=== PATIENT | female | born 1965 | race Caucasian/White ===

== ENCOUNTER 2016-10-09 12:02 | Emergency (ER) | payer OTHER ==
[~2016-10-09] VITALS: Ht 152.4 cm; Wt 86.2 kg
[2016-10-09] MEDS ORDERED: METF500T8 PO (12:13)
[2016-10-09] MEDS ORDERED: ATOR80TA76 PO (12:13)
[2016-10-09] MEDS ORDERED: KETOROLAC 30 MG/ML VIAL IVP ONE (12:15)
--- NOTE | 2016-10-09 12:17 | ED Chest Pain ---
General Chief Complaint: Chest Wall/Rib Pain Stated Complaint: BACK PAIN Source: patient Exam Limitations: no limitations History of Present Illness Time seen by provider: 12:14 Initial Comments To ER with left lateral and posterior chest pain. This began suddenly while she was taking a shower reachinG up to shampoo her hair at 11 a.m. She had sudden onset of a cramp to the left lateral thoracic back. She had associated dyspnea. She took a Flexeril at home which minimally helped. She had her rub the area that hurt and that seemed to alleviate some of the pain. She also reports some mild indigestion. She states that the pain is not that bad but her big concern was that her dog "freaked out" and started whining and put it positive on her which made her believe that the dog suspected this to be a more serious event. She denies any personal history of heart disease. Pain is worse with deep breathing. Timing/Duration: 1-3 hours Severity/Quality: moderate Location: other (left lateral thoracic) Radiation: no radiation Activities at Onset: none ASA po NURSE GYNECOLOGY: No NTG SL NURSE GYNECOLOGY: No Associated Symptoms: shortness of breath (this is resolved currently however) Allergies and Home Medications Allergies Coded Allergies: codeine (Verified Allergy, Unknown, 10/09/16) Home Medications Atorvastatin Calcium 80 Mg Tablet, 1 TAB PO UD, #30 (Reported) Metformin HCl 500 Mg Tab.er.24h, 1 TAB PO UD, #30 (Reported) Review of Systems Constitutional: see HPI EENTM: No Symptoms Reported Respiratory: See HPI Cardiovascular: See HPI Gastrointestinal: No Symptoms Reported Genitourinary: No Symptoms Reported Musculoskeletal: no symptoms reported Skin: no symptoms reported Psychiatric/Neurological: No Symptoms Reported Endocrine: No Symptoms Reported Past Wqfzlgs-Yjtrau-Xgheov Hx Patient Social History Recent Foreign Travel: No Contact w/Someone Who Travel: No Physical Exam Vital Signs Vital Sign - Last 12Hours 10/09/16 12:14 Temp 97.8 Pulse 76 Resp 18 B/P (MAP) 132/90 Pulse Ox 98 O2 Delivery Room Air Capillary Refill : General Appearance: No Apparent Distress, WD/WN HEENT: PERRL/EOMI, TMs Normal Neck: Full Range of Motion, Normal Inspection Respiratory: Lungs Clear, No Accessory Muscle Use, No Respiratory Distress, Other (left lateral chest wall is tender but without lesion, rash or ecchymosis. No crepitus.) Cardiovascular: Regular Rate, Rhythm, Normal Peripheral Pulses Gastrointestinal: Normal Bowel Sounds, Non Tender, Soft Extremity: Normal Capillary Refill, Normal Inspection Neurologic/Psychiatric: Alert, Oriented x3, No Motor/Sensory Deficits Skin: Normal Color, Warm/Dry Progress/Results/Core Measures Results/Orders Lab Results Laboratory Tests Test 10/09/16 12:20 10/09/16 14:00 Range/Units White Blood Count 5.6 4.3-11.0 10^3/uL Red Blood Count 4.88 4.35-5.85 10^6/uL Hemoglobin 14.0 11.5-16.0 G/DL Hematocrit 43 35-52 % Mean Corpuscular Volume 88 80-99 FL Mean Corpuscular Hemoglobin 29 25-34 PG Mean Corpuscular Hemoglobin Concent 33 32-36 G/DL Red Cell Distribution Width 13.4 10.0-14.5 % Platelet Count 257 130-400 10^3/uL Mean Platelet Volume 10.5 H 7.4-10.4 FL Neutrophils (%) (Auto) 45 42-75 % Lymphocytes (%) (Auto) 41 12-44 % Monocytes (%) (Auto) 8 0-12 % Eosinophils (%) (Auto) 6 0-10 % Basophils (%) (Auto) 1 0-10 % Neutrophils # (Auto) 2.5 1.8-7.8 X 10^3 Lymphocytes # (Auto) 2.3 1.0-4.0 X 10^3 Monocytes # (Auto) 0.4 0.0-1.0 X 10^3 Eosinophils # (Auto) 0.3 0.0-0.3 10^3/uL Basophils # (Auto) 0.1 0.0-0.1 10^3/uL D-Dimer 0.32 0.00-0.49 UG/ML Sodium Level 139 135-145 MMOL/L Potassium Level 4.2 3.6-5.0 MMOL/L Chloride Level 105 98-107 MMOL/L Carbon Dioxide Level 24 21-32 MMOL/L Anion Gap 10 5-14 MMOL/L Blood Urea Nitrogen 17 7-18 MG/DL Creatinine 1.07 0.60-1.30 MG/DL Estimat Glomerular Filtration Rate 54 BUN/Creatinine Ratio 16 Glucose Level 98 70-105 MG/DL Calcium Level 9.9 8.5-10.1 MG/DL Total Bilirubin 0.7 0.1-1.0 MG/DL Aspartate Amino Transf (AST/SGOT) 27 5-34 U/L Alanine Aminotransferase (ALT/SGPT) 33 0-55 U/L Alkaline Phosphatase 96 40-136 U/L Troponin I < 0.30 <0.30 NG/ML Total Protein 7.6 6.4-8.2 G/DL Albumin 4.4 3.2-4.5 G/DL My Orders Orders - ZURI VAZQUEZ APRN Cbc With Automated Diff (10/09/16 12:13) Comprehensive Metabolic Panel (10/09/16 12:13) Fibrin Degradation Products (10/09/16 12:13) Ekg Tracing (10/09/16 12:13) Troponin I (10/09/16 12:13) Saline Lock/Iv-Start (10/09/16 12:13) Ketorolac Injection (Toradol Injection) (10/09/16 12:15) Chest Pa/Lat (2 View) (10/09/16 12:53) Troponin I (10/09/16 13:57) Medications Given in ED Current Medications Medications Dose Ordered Sig/Noe Route Start Time Stop Time Status Last Admin Dose Admin Ketorolac Tromethamine 30 mg ONCE ONCE IVP 10/09/16 12:15 10/09/16 12:16 DC 10/09/16 12:22 30 MG Vital Signs/I&O Vital Sign - Last 12Hours 10/09/16 10/09/16 12:14 12:22 Temp 97.8 97.8 Pulse 76 Resp 18 B/P (MAP) 132/90 Pulse Ox 98 O2 Delivery Room Air Progress Note : Progress Note 1320-all of the patient's labs are unremarkable. EKG shows no ST segment changes. Her pain at this point is much improved after Toradol and only recurs with certain movements. Advised her this is likely musculoskeletal pain however we will repeat a troponin at 2 p.m. which would be roughly 3 hours after the onset. If still negative, we will discharge to home with treatment for muscular skeletal back pain. Patient and agree with this plan. 1406-I did discuss the patient's labs and urine drug screen with her. She admits "I did snort a line of meth with a friend at work 2 days ago" Diagnostic Imaging Diagonstic Imaging: Xray Comments NAME: NARAYAN BROWN [facility] REC#: [id number] PT STATUS: REG ER : 1965 PHYSICIAN: ZURI VAZQUEZ APRN ADMIT DATE: 10/09/16/ER Draft Date of Exam:10/09/16 CHEST PA/LAT (2 VIEW) INDICATION: Left rib pain. FINDINGS: PA and lateral chest shows the lungs to be well-aerated and clear. There are no infiltrates present. No masses. The heart is not enlarged. There is no evidence of pulmonary edema. No pneumothorax or pleural effusions. No rib fractures or destructive bony lesions. IMPRESSION: Normal PA and lateral chest. Dictated on workstation # [id number] Dict: 10/09/16 1308 Trans: 10/09/16 1310 [facility] [id number] Interpreted by: AJIT RODRIGUEZ MD Electronically signed by: Departure Impression Impression: Primary Impression: Thoracic back pain Disposition: 01 HOME, SELF-CARE Condition: Stable Decision to Admit Reason: Admit from ER (General) Departure-Patient Inst. Decision time for Depature: 13:06 Referrals: MAXWELL BENNETT DO (PCP/Family) Primary Care Physician Patient Instructions: Muscle Strain Add. Discharge Instructions: 1. Return to ER for any concerns such as worsening pain, shortness of breath, chest pain, lightheadedness 2. Follow-up with your doctor tomorrow All discharge instructions reviewed with patient and/or family. Voiced understanding. Images Torso/Trunk 1 - Tenderness 1 - Tenderness Copy Copies To 1: MAXWELL BENNETT PETER J APRN Oct 09, 2016 12:17
[2016-10-09 12:33] LABS: BASOPHILS # (AUTO) 0.1 10^3/uL (0.0-0.1); BASOPHILS % (AUTO) 1 % (0-10); EOSINOPHILS # (AUTO) 0.3 10^3/uL (0.0-0.3); EOSINOPHILS % (AUTO) 6 % (0-10); LYMPHOCYTES # (AUTO) 2.3 X 10^3 (1.0-4.0); LYMPHOCYTES % (AUTO) 41 % (12-44); MEAN CORPUSCULAR HEMOGLOBIN 29 PG (25-34); MEAN CORPUSCULAR HGB CONC 33 G/DL (32-36); MEAN CORPUSCULAR VOLUME 88 FL (80-99); MEAN PLATELET VOLUME 10.5 FL (7.4-10.4); MONOCYTES # (AUTO) 0.4 X 10^3 (0.0-1.0); MONOCYTES % (AUTO) 8 % (0-12); NEUTROPHILS # (AUTO) 2.5 X 10^3 (1.8-7.8); NEUTROPHILS % (AUTO) 45 % (42-75); PLATELET COUNT 257 10^3/uL (130-400); RED BLOOD COUNT 4.88 10^6/uL (4.35-5.85); RED CELL DISTRIBUTION WIDTH 13.4 % (10.0-14.5); WHITE BLOOD COUNT 5.6 10^3/uL (4.3-11.0)
[2016-10-09 12:52] LABS: ALANINE AMINOTRANSFERASE 33 U/L (0-55); ALBUMIN 4.4 G/DL (3.2-4.5); ANION GAP 10 MMOL/L (5-14); ASPARTATE AMINO TRANSFERASE 27 U/L (5-34); BILIRUBIN,TOTAL 0.7 MG/DL (0.1-1.0); BLOOD UREA NITROGEN 17 MG/DL (7-18); BUN/CREATININE RATIO 16; CALCIUM 9.9 MG/DL (8.5-10.1); CARBON DIOXIDE 24 MMOL/L (21-32); CHLORIDE 105 MMOL/L (98-107); CREATININE SERUM 1.07 MG/DL (0.60-1.30); GFR ESTIMATED 54; GLUCOSE 98 MG/DL (70-105); POTASSIUM 4.2 MMOL/L (3.6-5.0); SODIUM 139 MMOL/L (135-145); TOTAL PROTEIN 7.6 G/DL (6.4-8.2)
[2016-10-09 12:58] LABS: TROPONIN I < 0.30 NG/ML (<0.30)
--- NOTE | 2016-10-09 13:10 | Diagnostic Imaging Report ---
INDICATION: Left rib pain. FINDINGS: PA and lateral chest shows the lungs to be well-aerated and clear. There are no infiltrates present. No masses. The heart is not enlarged. There is no evidence of pulmonary edema. No pneumothorax or pleural effusions. No rib fractures or destructive bony lesions. IMPRESSION: Normal PA and lateral chest. Dictated by: Dictated on workstation # [id number]
[2016-10-09 14:45] VITALS: BP 132/75
== END 2016-10-09 14:45 | disposition home or self-care (01) ==
LOC: EDUNIT# 12:02 → ER 12:04
DX: M54.6 Pain in thoracic spine (principal); E11.9 Type 2 diabetes mellitus without complications; F15.10 Other stimulant abuse, uncomplicated; Z79.84 Long term (current) use of oral hypoglycemic drugs
CPT/HCPCS: 36415; 71020; 80053; 84484; 85025; 85379; 93005; 96374

== ENCOUNTER → 2017-06-02 | Outpatient (CLI) | payer OTHER ==
[~2017-06-02] MED LIST: ATOR80TA76 PO; METF500T8 PO
[2017-06-02 12:19] LABS: BASOPHILS % (AUTO) 0 % (0-10); EOSINOPHILS # (AUTO) 0.4 10^3/uL (0.0-0.3); EOSINOPHILS % (AUTO) 5 % (0-10); LYMPHOCYTES # (AUTO) 2.8 X 10^3 (1.0-4.0); LYMPHOCYTES % (AUTO) 36 % (12-44); MEAN CORPUSCULAR HEMOGLOBIN 29 PG (25-34); MEAN CORPUSCULAR HGB CONC 33 G/DL (32-36); MEAN CORPUSCULAR VOLUME 88 FL (80-99); MEAN PLATELET VOLUME 9.2 FL (7.4-10.4); MONOCYTES # (AUTO) 0.6 X 10^3 (0.0-1.0); MONOCYTES % (AUTO) 8 % (0-12); NEUTROPHILS # (AUTO) 3.9 X 10^3 (1.8-7.8); NEUTROPHILS % (AUTO) 50 % (42-75); PLATELET COUNT 409 10^3/uL (130-400); RED BLOOD COUNT 4.42 10^6/uL (4.35-5.85); RED CELL DISTRIBUTION WIDTH 13.8 % (10.0-14.5); WHITE BLOOD COUNT 7.7 10^3/uL (4.3-11.0)
--- NOTE | 2017-06-02 12:19 | Diagnostic Imaging Report ---
PA and lateral views of chest. INDICATION: Cough. FINDINGS: The lungs are clear. The heart size is normal. There is no effusion or pneumothorax. The mediastinum and ashley appear unremarkable. IMPRESSION: Unremarkable exam. Dictated by: Dictated on workstation # [id number]
[2017-06-02 12:49] LABS: ALBUMIN 3.8 GM/DL (3.2-4.5); BILIRUBIN,TOTAL 0.4 MG/DL (0.1-1.0); CALCIUM 9.2 MG/DL (8.5-10.1); CREATININE SERUM 1.16 MG/DL (0.60-1.30); POTASSIUM 3.6 MMOL/L (3.6-5.0); TOTAL PROTEIN 6.7 GM/DL (6.4-8.2)
== END ==
LOC: RAD 11:55
PROVIDERS: ATTEND Nurse Practitioner Family
DX: R05 Cough (principal)
CPT/HCPCS: 36415; 71020; 80053; 85025

== ENCOUNTER → 2020-06-09 | Outpatient (CLI) | payer OTHER ==
[~2020-06-09] MED LIST changes: +METF-865 PO; -METF500T8 PO
--- NOTE | 2020-06-15 11:21 | Diagnostic Imaging Report ---
INDICATION: Routine screening. Comparison is made with prior mammograms from 08/04/2011 and 01/22/2014. 2-D and 3-D bilateral screening mammography was performed with CAD. Scattered fibroglandular densities are identified bilaterally. There are circumscribed nodules in both breasts which appear benign but no spiculated mass or malignant-appearing microcalcifications are seen. Axillae are unremarkable. IMPRESSION: BI-RADS Category 2 No mammographic features suspicious for malignancy are identified. ACR BI-RADS Category 2: Benign findings. Result letter will be mailed to the patient. Note: At least 10% of breast cancer is not imaged by mammography. Dictated by: Dictated on workstation # [id number]
== END ==
LOC: RAD 08:15
PROVIDERS: ATTEND Family Medicine
DX: Z12.31 Encounter for screening mammogram for malignant neoplasm of breast (principal)
CPT/HCPCS: 77063; 77067

== ENCOUNTER → 2020-07-06 | Outpatient (CLI) | payer OTHER ==
--- NOTE | 2020-07-06 15:08 | Diagnostic Imaging Report ---
PROCEDURE: MR imaging of the brain without contrast. TECHNIQUE: Multiplanar, multisequence MR imaging of the brain was performed without contrast. INDICATION: Tremors. COMPARISON: No prior studies are available for comparison. FINDINGS: Ventricles and sulci are within normal limits. No sulcal effacement or midline shift is identified. No acute intra-axial or extra-axial hemorrhage is detected. No diffusion restriction is seen to suggest acute ischemia. The normal expected flow voids within the carotid siphons are seen. Corpus callosum is unremarkable. Sella and parasellar structures are unremarkable. IMPRESSION: Unremarkable noncontrast MRI of the brain. Dictated by: Dictated on workstation # [id number]
== END ==
LOC: RAD 14:45
PROVIDERS: ATTEND Family Medicine
DX: G25.2 Other specified forms of tremor (principal); R42 Dizziness and giddiness; R26.81 Unsteadiness on feet
CPT/HCPCS: 70551

== ENCOUNTER → 2020-07-13 | Outpatient (CLI) | payer OTHER ==
--- NOTE | 2020-07-13 14:29 | Diagnostic Imaging Report ---
Clinical indication: Patient with vertigo, unsteady gait, right hand tremor. Patient states possible Parkinson's versus a mass. Exam: MRI of the cervical spine performed without IV contrast. Sequences include sagittal T1, sagittal T2, sagittal stir, axial T2 merge, and axial T2. Comparison: None. Findings: There is no acute cervical spine fracture or dislocation. There is no significant cervical vertebral body signal abnormality. Limited visualization of posterior fossa is unremarkable. Cervical spinal cord has normal signal. C1-C2: There are degenerative spurs involving the atlantoodontoid interval anteriorly. There is no significant central canal narrowing. C2-C3: There is no significant central spinal canal or neural foramen narrowing. C3-C4: There is no significant central spinal canal or neural foramen narrowing. C4-C5: There is mild diffuse disk bulge with small right uncinate spurs. There is mild right neural foramen narrowing and no significant left neural foramen narrowing. There is no significant central canal narrowing. C5-C6: There is a diffuse disk bulge with bilateral uncinate spurs. There is moderate bilateral neural foramen narrowing and mild to moderate central canal stenosis. C6-C7: There is a 7 mm perineural cyst in the left neural foramen region. There is no significant central spinal canal or neural foramen narrowing. C7-T1: There is no significant central spinal canal or neural foramen narrowing. IMPRESSION: 1: There is multilevel cervical spine degenerative disease, described in detail above. 2: There is a C5-C6 diffuse disk bulge and bilateral uncinate spurs. There is mild to moderate central canal stenosis and moderate bilateral neural foramen narrowing. 3: There is no significant abnormal cord signal abnormality. Dictated by: Dictated on workstation # [id number]
== END ==
LOC: RAD 13:15
PROVIDERS: ATTEND Family Medicine
DX: M47.812 Spondylosis without myelopathy or radiculopathy, cervical region (principal); M50.221 Other cervical disc displacement at C4-C5 level; M50.222 Other cervical disc displacement at C5-C6 level; M48.02 Spinal stenosis, cervical region; R42 Dizziness and giddiness; R26.81 Unsteadiness on feet; R25.1 Tremor, unspecified
CPT/HCPCS: 72141

== ENCOUNTER → 2022-09-05 | Outpatient (CLI) | payer OTHER ==
--- NOTE | 2022-09-06 09:18 | Diagnostic Imaging Report ---
Bilateral screening mammogram with CAD. This study was compared to the prior exam of 06/09/2020. At this time there are no current complaints. The current study was also evaluated with a Computer Aided Detection (CAD) system. FINDINGS: There are scattered fibroglandular densities in both breasts which could obscure a lesion. Overall, there does not appear to have been any significant change when compared to the prior exam. No primary or secondary sign of malignancy is noted. IMPRESSION: There is no radiographic evidence for malignancy. ACR BI-RADS Category 1: Negative. Result letter will be mailed to the patient. Note: At least 10% of breast cancer is not imaged by mammography. Dictated by: Dictated on workstation # [id number]
== END ==
LOC: RAD 08:42
PROVIDERS: ATTEND Family Medicine
DX: Z12.31 Encounter for screening mammogram for malignant neoplasm of breast (principal)
CPT/HCPCS: 77063; 77067